=== PATIENT | female | born 1935 | race Caucasian/White ===

== ENCOUNTER → 2024-11-25 | Outpatient (CLI) | payer MEDICARE, SELFPAY ==
--- NOTE | 2024-11-25 15:07 | RAD_ITS ---
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 Chondrocalcinosis is visible in the triangular fibrocartilage. Subcortical cysts or erosions are present in the ulnar styloid with the largest measuring 0.3 cm. There is mild osteoarthritis of the interphalangeal joints. Osteopenia is noted. There is no acute fracture or dislocation. No focal soft tissue abnormality or radiopaque foreign body is identified. Vascular calcifications are present. 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 Reading Location: [facility]
--- NOTE | 2024-11-25 15:08 | RAD_ITS ---
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 There is chondrocalcinosis in the triangular fibrocartilage. No acute fracture or dislocation is seen. Vascular calcifications are noted. Soft tissue swelling is present over the ulnar styloid. Mineralization is normal. RAD/Hand Min 3 Views IMPRESSION: Osteoarthritis with no significant erosive disease. Reading Location: [facility]
[2024-11-25 18:51] LABS: Hematocrit 35.5 % (37-47); Hemoglobin 11.3 g/dL (12.0-15.0); Immature Granulocytes Count 0.020 X10^3/uL (0.0-0.0); Mean Corp Hgb Conc 31.8 g/dL (32-36); Mean Corpuscular Volume 93.7 fL (81-99); Mean Platelet Vol. 9.1 fl (6.2-12.0); NRBC Flagged by Analyzer 0 % (0-5); Platelet Count 327 K/mm3 (150-450); RBC Distribution Width CV 15.6 % (11.6-14.6); RBC Distribution Width SD 53.5 fl (35.1-43.9); Red Blood Count 3.79 M/mm3 (4.2-5.4); White Blood Count 7.0 K/mm3 (4.4-11.0)
[2024-11-25 19:35] LABS: AST(SGOT) 17 U/L (<=31); Alanine Aminotransfer ALT/SGPT 8 U/L (<=34); Albumin, Serum 3.7 g/dL (3.4-4.8); Alkaline Phosphatase 64 U/L (35-104); Anion Gap 14 (5-15); BUN 16 mg/dL (4-19); BUN/Creat Ratio 22.6 RATIO (10-20); Calcium,Total 9.6 mg/dL (7.6-11.0); Carbon Dioxide 25.3 mmol/L (21.0-32.0); Chloride 94 mmol/L (98-108); Globulin 3.3 g/dL (2.2-4.2); Glucose 90 mg/dL (70-99); Hepatitis B Surface Antigen Nonreactive (Nonreactive); Hepatitis C Antibody Nonreactive (Nonreactive); Potassium 4.1 mmol/L (3.3-5.1)
[2024-11-25 19:47] LABS: CRP 42.30 mg/L (0.0-3.0)
[2024-11-29 15:08] LABS: Red Blood Cell Count Test/G6PD 3.86 x10E6/uL (3.77-5.28)
== END | disposition home or self-care (01) ==
PROVIDERS: Referring Provider Internal Medicine Rheumatology; Visit Provider Internal Medicine Rheumatology
DX: M05.79 Rheumatoid arthritis with rheumatoid factor of multiple sites without organ or systems involvement (principal); M19.041 Primary osteoarthritis, right hand; M17.0 Bilateral primary osteoarthritis of knee; Z79.899 Other long term (current) drug therapy
CPT/HCPCS: 36415; 73130; 80053; 82955; 85025; 85652; 86140; 86200; 86431; 86706; 86803; 87340

== ENCOUNTER → 2024-11-26 | Outpatient (CLI) | payer MEDICARE, SELFPAY ==
[2024-11-26 20:44] LABS: RBC /Synovial Fluid 0.053 10^6/uL (0); Synovial Fld Mononuclear WBC # 1.858 10^3/ul; Synovial Fld Mononuclear WBC % 47.7 %; Synovial Fld Polynuclear WBC # 2.037 10^3/uL; Synovial Fld Polynuclear WBC % 52.3 %; Total Cell Count Synovial Fld 3.9890 10^3/uL (0.000-0.000); WBC / Synovial Fluid 3.8950 10^3/uL (0.000-0.002)
[2024-11-26 21:05] LABS: Source- Body Fluid SYNOVIAL
[2024-11-26 21:06] LABS: Source / Synovial Fluid RIGHT KNEE
[2024-11-26 21:10] LABS: Appearance /Synovial Fluid Turbid (CLEAR); Color / Synovial Fluid Red (Pale Yellow)
[2024-11-26 23:38] LABS: Monocyte /Synovial Fluid 18 %
[2024-11-26 23:39] LABS: AUTO B FLUID DILUENT BKGD CT WBC <0.1 RBC <0.01 (W<.1,R<.01); Body Fluid QC Type(s) BF1Q,BF2Q
[2024-12-01 15:04] LABS: CRYSTALS, BODY FLUID CALCIUM PYROPHOS
== END | disposition home or self-care (01) ==
PROVIDERS: Referring Provider Internal Medicine Rheumatology; Visit Provider Internal Medicine Rheumatology
DX: M05.79 Rheumatoid arthritis with rheumatoid factor of multiple sites without organ or systems involvement (principal); Z79.899 Other long term (current) drug therapy
CPT/HCPCS: 87070; 87075; 87205; 89050; 89051; 89060